=== PATIENT | female | born 1935 | race Asian ===

== ENCOUNTER 2017-05-16 07:13 | Emergency (ER) | payer OTHER ==
[~2017-05-16 07:13] MED LIST: BAYER ASPIRIN C81 MG PO; GLU500 PO; LEV500 PO; LIPI20 PO; TEN25 PO; TEN50 PO; VALSARTAN AND H1 TA3 PO; VITAMIN D32000 I2 PO
[2017-05-16 08:03] LABS: BASOPHIL % 0.6 % (0-2); PLATELET COUNT 136 x10^3mcL (130-400)
[2017-05-16 08:15] LABS: CALCIUM 9.2 mg/dL (8.5-10.1); CARBON DIOXIDE 29.2 mmol/L (21-32); CHLORIDE SERUM 103 mmol/L (98-107); CREATININE SERUM 0.6 mg/dL (0.6-1.0); GLUCOSE SERUM 171 mg/dL (74-106); POTASSIUM SERUM 3.2 mmol/L (3.5-5.1); SODIUM SERUM 139 mmol/L (136-145)
[2017-05-16 08:22] LABS: ALBUMIN 3.7 g/dL (3.4-5.0); ALKALINE PHOSPHATASE 81 U/L (46-116); ALT/SGPT 42 U/L (14-59); AST/SGOT 20 U/L (15-37); BILIRUBIN TOTAL 0.91 mg/dL (0.20-1.00); TOTAL PROTEIN, SERUM 6.5 g/dL (6.4-8.2)
[2017-05-16 09:06] VITALS: BP 160/77
== END 2017-05-16 09:09 | disposition home or self-care (01) ==
LOC: ED 07:13
PROVIDERS: Emergency Medicine
DX: J02.9 Acute pharyngitis, unspecified (principal); E11.9 Type 2 diabetes mellitus without complications; I10 Essential (primary) hypertension; T78.40XA Allergy, unspecified, initial encounter; X58.XXXA Exposure to other specified factors, initial encounter
CPT/HCPCS: 83880; J1200; J2930; J7030; J7613; Q0092

== ENCOUNTER 2017-07-02 21:42 | Emergency (ER) | payer OTHER ==
[~2017-07-02] VITALS: Ht 160 cm; Wt 59.9 kg
[2017-07-03 00:34] VITALS: BP 154/88
== END 2017-07-03 00:34 | disposition home or self-care (01) ==
LOC: ED 21:42
DX: T78.3XXA Angioneurotic edema, initial encounter (principal); J02.9 Acute pharyngitis, unspecified; I10 Essential (primary) hypertension; E11.9 Type 2 diabetes mellitus without complications; Z79.84 Long term (current) use of oral hypoglycemic drugs
CPT/HCPCS: J1200; J2930; J3490; J7030

== ENCOUNTER 2018-01-03 22:18 | Inpatient (IN) | payer OTHER ==
[~2018-01-03] VITALS: Ht 154.9 cm; Wt 56.5 kg
[2018-01-03 23:30] LABS: BASOPHIL % 0.3 % (0-2); PLATELET COUNT 156 x10^3mcL (130-400); RED CELL DISTRIBUTION WIDTH 13.6 % (11.5-14.5)
[2018-01-03 23:43] LABS: CALCIUM 9.2 mg/dL (8.5-10.1); CARBON DIOXIDE 28.6 mmol/L (21-32); CHLORIDE SERUM 98 mmol/L (98-107); CREATININE SERUM 0.8 mg/dL (0.6-1.0); GLUCOSE SERUM 192 mg/dL (74-106); SODIUM SERUM 135 mmol/L (136-145)
[2018-01-03 23:48] LABS: ALBUMIN 4.2 g/dL (3.4-5.0); ALKALINE PHOSPHATASE 71 U/L (46-116); ALT/SGPT 42 U/L (14-59); AST/SGOT 24 U/L (15-37); BILIRUBIN TOTAL 0.8 mg/dL (0.20-1.00); TOTAL PROTEIN, SERUM 7.4 g/dL (6.4-8.2)
[2018-01-04] VITALS (7 sets, daily range): BP systolic 112–167; BP diastolic 50–93; Ht 154.9 cm; Wt 56.5 kg
[2018-01-04 00:18] LABS: microscopic required? YES; urine erythrocyte NEGATIVE (NEGATIVE)
[2018-01-04 01:51] LABS: CHOLESTEROL/HDL RATIO 2.4; PHOSPHOROUS 2.5 mg/dL (2.5-4.9)
[2018-01-04 02:01] LABS: T3 TOTAL 0.99 ng/mL
[2018-01-04 02:26] LABS: FREE T4 1.02 ng/dL (0.76-1.46); T4(THYROXINE) 8.8 ug/dL (4.7-13.3)
[2018-01-04] MEDS ORDERED: DIOVAN80 MG PO (04:54)
[2018-01-04] MEDS ORDERED: VICTOZA6 MG/M1 INJ (04:59)
[2018-01-04] MEDS ORDERED: LANTUS SOLOS100 U/M1 INJ (05:01)
[2018-01-04 09:02] LABS: BASOPHIL % 0.3 % (0-2); PLATELET COUNT 132 x10^3mcL (130-400); RED CELL DISTRIBUTION WIDTH 13.5 % (11.5-14.5)
[2018-01-04 09:23] LABS: CALCIUM 8.3 mg/dL (8.5-10.1); CARBON DIOXIDE 27.8 mmol/L (21-32); CHLORIDE SERUM 109 mmol/L (98-107); CREATININE SERUM 0.7 mg/dL (0.6-1.0); GLUCOSE SERUM 126 mg/dL (74-106); POTASSIUM SERUM 3.5 mmol/L (3.5-5.1); SODIUM SERUM 145 mmol/L (136-145)
[2018-01-05 05:26] VITALS: BP 172/75
[2018-01-05 06:14] LABS: BASOPHIL % 0.1 % (0-2); RED CELL DISTRIBUTION WIDTH 13.2 % (11.5-14.5)
[2018-01-05 06:20] LABS: CALCIUM 8.8 mg/dL (8.5-10.1); CARBON DIOXIDE 27.5 mmol/L (21-32); CHLORIDE SERUM 98 mmol/L (98-107); CREATININE SERUM 0.7 mg/dL (0.6-1.0); GLUCOSE SERUM 142 mg/dL (74-106); POTASSIUM SERUM 3.4 mmol/L (3.5-5.1); SODIUM SERUM 133 mmol/L (136-145)
[2018-01-05 07:01] LABS: PLATELET COUNT 123 x10^3mcL (130-400)
[2018-01-05 10:07] VITALS: BP 131/63
[2018-01-05 14:13] VITALS: BP 124/71
[2018-01-05 17:52] VITALS: BP 123/57
[2018-01-05 21:24] VITALS: BP 115/51
[2018-01-06 05:24] VITALS: BP 162/79
[2018-01-06 06:14] LABS: BASOPHIL % 0.4 % (0-2); RED CELL DISTRIBUTION WIDTH 13.7 % (11.5-14.5)
[2018-01-06 06:15] LABS: PLATELET COUNT 118 x10^3mcL (130-400)
[2018-01-06 06:38] LABS: CALCIUM 8.6 mg/dL (8.5-10.1); CARBON DIOXIDE 29.2 mmol/L (21-32); CHLORIDE SERUM 104 mmol/L (98-107); CREATININE SERUM 0.7 mg/dL (0.6-1.0); GLUCOSE SERUM 134 mg/dL (74-106); POTASSIUM SERUM 4.1 mmol/L (3.5-5.1); SODIUM SERUM 140 mmol/L (136-145)
[2018-01-06 09:20] VITALS: BP 169/79
[2018-01-06 10:39] VITALS: BP 115/57
[2018-01-06 12:40] VITALS: BP 128/59
[2018-01-06 16:26] VITALS: BP 128/59
[2018-01-06] MEDS ORDERED: CIPRO500 MG PO (17:04)
[2018-01-06] MEDS ORDERED: HURRICAINE MM (17:05)
[2018-01-06] MEDS ORDERED: LAC PO (17:06)
[2018-01-06] MEDS ORDERED: PRI20 PO (17:07)
[2018-01-06 17:20] VITALS: BP 160/73
== END 2018-01-06 18:19 | disposition home or self-care (01) | DRG 74 ==
LOC: ED 22:18 → DU 01-04 01:19
PROVIDERS: Emergency Medicine; Family Medicine Sports Medicine; Internal Medicine Gastroenterology; Student in an Organized Health Care Education/Training Program
PROC: 0DB78ZX Excision of Stomach, Pylorus, Via Natural or Artificial Opening Endoscopic, Diagnostic (ICD-10-PCS; principal; 2018-01-06 07:30)
DX: G90.8 Other disorders of autonomic nervous system (principal); N39.0 Urinary tract infection, site not specified; E87.1 Hypo-osmolality and hyponatremia; I42.2 Other hypertrophic cardiomyopathy; J06.0 Acute laryngopharyngitis; E87.6 Hypokalemia; B34.9 Viral infection, unspecified; I16.0 Hypertensive urgency; E78.1 Pure hyperglyceridemia; K29.70 Gastritis, unspecified, without bleeding; E11.65 Type 2 diabetes mellitus with hyperglycemia
CPT/HCPCS: 43235; 82962; 83880; 84439; 87804; 94150; 97110-GP; 97116-GP; 97530-GP; J0696; J1200; J1610; J2250; J2270; J2310; J3010; J3480; J3490; J7030; J7620; J8597; Q0092